=== PATIENT | male | born 1975 | race American Indian/Alaskan Native ===

== ENCOUNTER 2016-12-03 23:47 | Emergency (ER) | payer MEDICARE ==
[2016-12-04 01:21] LABS: Basophils % (Auto) 0.6 % (0.0-1.8); Eosinophils % (Auto) 1.3 % (0.0-4.3); Hematocrit 43.9 % (35.5-45.6); Hemoglobin 15.1 gm/dl (11.8-15.2); Mean Corpuscular HGB Conc 34 % (32-34); Mean Corpuscular Hemoglobin 32 pg (28-32); Mean Corpuscular Volume 93 fl (84-94); Platelet Count 170 K/mm3 (140-440); Red Cell Distribution Width 13.7 % (13.2-15.2); White Blood Count 10.3 K/mm3 (4.5-11.0)
[2016-12-04 01:32] LABS: Anion Gap 20 mmol/L; BUN/Creatinine Ratio 11.11; Blood Urea Nitrogen 10 mg/dL (9-20); Calcium 9.2 mg/dL (8.4-10.2); Carbon Dioxide 23 mmol/L (22-30); Chloride 100.5 mmol/L (98-107); Glucose 96 mg/dL (75-100); Sodium 139 mmol/L (137-145)
[2016-12-04 02:00] LABS: Urine Drugs of Abuse Note Disclamer
[2016-12-04 02:17] LABS: Bilirubin,Urine NEG (Negative); Blood,Urine NEG (Negative); Ketones,Urine 20 mg/dL (Negative); Leukocyte Esterase,Urine NEG (Negative); Mucus,Urine 3+ /HPF; Nitrite,Urine NEG (Negative); Protein,Urine <15 mg/dL mg/dL (Negative); WBC,Urine < 1.0 /HPF (0.0-6.0)
--- NOTE | 2016-12-04 03:28 | Emergency Department Report ---
- General Chief complaint: Medical Clearance Stated complaint: WEAKNESS Time Seen by Provider: 12/04/16 02:57 Source: patient Mode of arrival: Ambulatory Limitations: No Limitations - History of Present Illness Initial comments: Pt is a 41 yr old male with no PMHx, but poor historian who presents to the ED for "weakness of the legs" and intermittent EVANS's for the past few days. Pt denies EVANS at this time. Pt describes the weakness of his legs as "I can't move" however patient is moving all around and sitting backwards on the bed. Otherwise no fevers, chills, dizziness, visual changes, NVD, CP, SOB, abd pain, trauma, travel, or sick contacts - Related Data Allergies Allergy/AdvReac Type Severity Reaction Status Date / Time No Known Allergies Allergy Verified 12/04/16 00:28 ED Review of Systems ROS: Stated complaint: WEAKNESS Other details as noted in HPI Comment: All other systems reviewed and negative ED Past Medical Hx - Past Medical History Previous Medical History?: Yes Hx Psychiatric Treatment: Yes ([facility]) - Surgical History Past Surgical History?: No - Social History Smoking Status: Current Every Day Smoker Substance Use Type: Alcohol ED Physical Exam - General Limitations: No Limitations General appearance: alert, in no apparent distress - Head Head exam: Present: atraumatic, normocephalic - Eye Eye exam: Present: normal appearance - ENT ENT exam: Present: mucous membranes moist - Neck Neck exam: Present: normal inspection - Respiratory Respiratory exam: Present: normal lung sounds bilaterally. Absent: respiratory distress - Cardiovascular Cardiovascular Exam: Present: regular rate, normal rhythm. Absent: systolic murmur, diastolic murmur, rubs, gallop - GI/Abdominal GI/Abdominal exam: Present: soft, normal bowel sounds - Rectal Rectal exam: Present: deferred - Extremities Exam Extremities exam: Present: normal inspection - Back Exam Back exam: Present: normal inspection - Neurological Exam Neurological exam: Present: alert, oriented X3, CN II-XII intact, normal gait, other (Patient moving all around, walking through the halls). Absent: motor sensory deficit - Psychiatric Psychiatric exam: Present: normal mood, flat affect. Absent: agitated, anxious , suicidal ideation - Skin Skin exam: Present: warm, dry, intact, normal color. Absent: rash ED Course Vital Signs 12/04/16 12/04/16 12/04/16 00:28 03:11 03:29 Temperature 98.6 F 98 F Pulse Rate 80 78 Respiratory 20 20 18 Rate Blood Pressure 109/59 Blood Pressure 111/60 [Left] O2 Sat by Pulse 99 100 Oximetry ED Medical Decision Making - Lab Data Result diagrams: 12/04/16 00:55 12/04/16 00:55 Critical care attestation.: If time is entered above; I have spent that time in minutes in the direct care of this critically ill patient, excluding procedure time. ED Disposition Clinical Impression: Weakness Disposition: DISCHARGED TO HOME OR SELFCARE Is pt being admited?: No Condition: Stable Instructions: Weakness (ED) Referrals: PRIMARY CARE, [Primary Care Provider] - 3-5 Days
[2016-12-04 05:24] VITALS: BP 122/75
== END 2016-12-04 05:53 | disposition home or self-care (01) ==
LOC: ED 23:47 → EEVIPCON 23:47 → ED 12-04 05:53
DX: R53.1 Weakness (principal); F20.9 Schizophrenia, unspecified; F17.200 Nicotine dependence, unspecified, uncomplicated
CPT/HCPCS: 36415; 80048; 80307; 81001; 85025; 99283; G0480; 80320